=== PATIENT | male | born 1990 | race Caucasian/White ===

== ENCOUNTER 2018-11-27 22:34 | Emergency (ER) | payer OTHER, BC ==
[~2018-11-27] VITALS: Ht 175.3 cm; Wt 84.1 kg
[2018-11-27] MEDS ORDERED: LEVE10006 (22:46)
[2018-11-27] MEDS ORDERED: CLON0.1T (22:46)
[2018-11-27] MEDS ORDERED: BACL20TA (22:46)
[2018-11-27] MEDS ORDERED: PREG100C (22:46)
[2018-11-27] MEDS ORDERED: CLON0.5T13 (22:46)
[2018-11-27] MEDS ORDERED: CEPH500C (22:46)
[2018-11-27] MEDS ORDERED: LURA60TA2 (22:46)
--- NOTE | 2018-11-27 23:28 | NUR ---
c-collar placed by dr downey
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
[2018-11-28 00:37] VITALS: BP 139/84
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
== END 2018-11-28 00:40 | disposition home or self-care (01) ==
LOC: EDUNIT# 22:34 → ER 22:36
DX: S60.222A Contusion of left hand, initial encounter (principal); M25.571 Pain in right ankle and joints of right foot; M54.2 Cervicalgia; F41.9 Anxiety disorder, unspecified; F17.210 Nicotine dependence, cigarettes, uncomplicated; R40.2142 Coma scale, eyes open, spontaneous, at arrival to emergency department; R40.2252 Coma scale, best verbal response, oriented, at arrival to emergency department; R40.2362 Coma scale, best motor response, obeys commands, at arrival to emergency department; V86.01XA Driver of ambulance or fire engine injured in traffic accident, initial encounter
CPT/HCPCS: 72125